=== PATIENT | female | born 1965 | race Caucasian/White ===

== ENCOUNTER 2024-10-04 07:30 | Outpatient (CLI) | payer OTHER ==
[2024-10-04] MEDS ORDERED: Iopamidol 300 61% 100 ML VIAL FS ONE (11:03)
== END 2024-10-04 07:31 | disposition home or self-care (01) ==
LOC: CSHCT 07:30
PROVIDERS: ATTEND Surgery
DX: K43.9 Ventral hernia without obstruction or gangrene (principal); K44.9 Diaphragmatic hernia without obstruction or gangrene
CPT/HCPCS: 36415; 74177; 82565

== ENCOUNTER 2025-04-17 08:23 | Outpatient (CLI) | payer OTHER | END 2025-04-17 08:24 | disposition home or self-care (01) | LOC: CSHSLEEP 08:23 | PROVIDERS: ATTEND Family Medicine | DX: G47.9 Sleep disorder, unspecified (principal); R53.83 Other fatigue; F32.A Depression, unspecified; K21.9 Gastro-esophageal reflux disease without esophagitis; R06.83 Snoring; G47.33 Obstructive sleep apnea (adult) (pediatric) | CPT/HCPCS: 95800 ==

== ENCOUNTER 2025-04-30 09:03 | Outpatient (CLI) | payer OTHER | END 2025-04-30 09:04 | disposition home or self-care (01) | LOC: CSHSLEEP 09:03 | PROVIDERS: ATTEND Family Medicine | DX: G47.9 Sleep disorder, unspecified (principal); R53.83 Other fatigue; F32.A Depression, unspecified; K21.9 Gastro-esophageal reflux disease without esophagitis; R06.83 Snoring; G47.33 Obstructive sleep apnea (adult) (pediatric); G47.61 Periodic limb movement disorder | CPT/HCPCS: 95811 ==